=== PATIENT | female | born 1995 | race Hispanic/Latino ===

== ENCOUNTER 2018-07-01 13:52 | Emergency (ER) | payer BC ==
[2018-07-01 14:34] VITALS: O2SAT 100
[2018-07-01] MEDS ORDERED: Sodium Chloride 0.9% 1,000 ML IV STA (15:03)
[2018-07-01] MEDS ORDERED: Iohexol 240 (50 ml) PO ONE (15:03)
[2018-07-01] MEDS ORDERED: Iohexol 240 (50 ml) ONE (15:10)
--- NOTE | 2018-07-01 15:21 | ED PDOC ---
HPI: Abdomen Time Seen by Provider: 07/01/18 14:48 Chief Complaint (Nursing): Abdominal Pain Chief Complaint (Provider): Abdominal Pain History Per: Patient History/Exam Limitations: no limitations Onset/Duration Of Symptoms: Days (x 1) Current Symptoms Are (Timing): Still Present Location Of Pain/Discomfort: Diffuse, RLQ Quality Of Discomfort: "Pain" Associated Symptoms: Nausea, Vomiting Additional Complaint(s): 23 year old female presents to the ED with right sided abdominal pain associated with nausea and vomiting beginning today. Patient reports that she visited [facility] Urgent care and was sent to the ED citing the possibility of appendicitis. She vomited twice prior to arrival. Patient takes no medications other than adderall and control. Denies urinary symptoms, diarrhea, vaginal bleeding and pelvic pain. PMD: Dr. Edwards Abnormal Vaginal Bleeding: No Past Medical History Reviewed: Historical Data, Nursing Documentation, Vital Signs Vital Signs: Last Vital Signs Temp 97.0 F L 07/01/18 14:30 Pulse 76 07/01/18 14:30 Resp 18 07/01/18 14:30 BP 108/72 07/01/18 14:30 Pulse Ox 100 07/01/18 14:30 - Medical History PMH: No Chronic Diseases - Surgical History Other surgeries: AVM removal in 2013 - Family History Family History: States: Unknown Family Hx - Allergies Allergies/Adverse Reactions: Allergies Allergy/AdvReac Type Severity Reaction Status Date / Time neomycin Allergy URTICARIA Verified 07/01/18 14:30 Review of Systems ROS Statement: Except As Marked, All Systems Reviewed And Found Negative ENT: Positive for: Nose Congestion Respiratory: Positive for: Sputum Gastrointestinal: Positive for: Nausea, Vomiting, Abdominal Pain. Negative for: Diarrhea Genitourinary Female: Negative for: Dysuria, Frequency, Incontinence, Vaginal Bleeding, Pelvic Pain Physical Exam - Reviewed Nursing Documentation Reviewed: Yes Vital Signs Reviewed: Yes - Physical Exam Appears: Positive for: No Acute Distress Head Exam: Positive for: ATRAUMATIC, NORMAL INSPECTION, NORMOCEPHALIC Skin: Positive for: Normal Color, Warm, Dry Eye Exam: Positive for: EOMI, Normal appearance, PERRL Neck: Positive for: Normal, Painless ROM, Supple Cardiovascular/Chest: Positive for: Regular Rate, Rhythm. Negative for: Murmur Respiratory: Positive for: Normal Breath Sounds. Negative for: Respiratory Distress Gastrointestinal/Abdominal: Positive for: Tenderness (diffuse). Negative for: Guarding, Rebound Extremity: Positive for: Normal ROM (upper and lower extremities). Negative fo r: Deformity Neurologic/Psych: Positive for: Alert, Oriented (x 3). Negative for: Motor/Sensory Deficits - Laboratory Results Result Diagrams: 07/01/18 15:18 07/01/18 15:18 - ECG O2 Sat by Pulse Oximetry: 100 (RA) Pulse Ox Interpretation: Normal - Progress ED Course And Treament: 1900: Stable. Dr. Kelly to fu on US. Appendix ok on Ct. Medical Decision Making Medical Decision Makin:03 Impression: abdominal pain, nausea and vomiting Initial Plan: --Abd Pelvis CT --CMP --urine dip --Lipase --CBC --NS IV --Omnipaque 50 ml PO --Zofran Inj 4 mg IV --UA Scribe Attestation: Documented by Sierra Medley, acting as a scribe for Clemente Wagner MD Provider Scribe Attestation: All medical record entries made by the Scribe were at my direction and personally dictated by me. I have reviewed the chart and agree that the record accurately reflects my personal performance of the history, physical exam, medical decision making, and the department course for this patient. I have also personally directed, reviewed, and agree with the discharge instructions and disposition. Disposition - Clinical Impression Clinical Impression: Abdominal pain, Haemorrhagic cyst - Patient ED Disposition Is Patient to be Admitted: No - Disposition Disposition: Transfer of Care Disposition Time: 19:05 Condition: STABLE Forms: [employer] ([place]an) Patient Signed Over To: Johnson Kelly
[2018-07-01 15:30] LABS: BASO # 0.1 K/uL (0.0-0.2); BASO % 0.9 % (0.0-2.0); EOS % 0.7 % (0.0-4.0); LYMPH # 1.7 K/uL (1.0-4.3); LYMPH % 28.4 % (20.0-40.0); MEAN CELL VOLUME 93.6 fl (81.0-99.0); MEAN CORPUSCULAR HEMOGLOBIN 31.3 pg (27.0-31.0); MEAN CORPUSCULAR HGB CONC 33.5 g/dL (33.0-37.0); MEAN PLATELET VOLUME 7.4 fl (7.2-11.7); MONO # 0.5 K/uL (0.0-0.8); MONO % 8.3 % (0.0-10.0); NEUT # 3.7 K/uL (1.8-7.0); NEUT % 61.7 % (50.0-75.0); NRBC % 0.2 % (0.0-0.0); RBC 4.15 Mil/uL (3.80-5.20); RED CELL DISTRIBUTION WIDTH 13.1 % (11.5-14.5)
[2018-07-01 16:03] LABS: SQUAMOUS EPITHIAL 8 /hpf (0-5); URINE BILIRUBIN NEGATIVE (NEGATIVE); URINE BLOOD NEGATIVE (NEGATIVE); URINE CLARITY SLIGHTY-CLOUDY (Clear); URINE COLOR YELLOW (YELLOW); URINE GLUCOSE (UA) NEG (NEGATIVE); URINE LEUKOCYTE ESTERASE SMALL Leu/uL (Negative); URINE PROTEIN NEGATIVE (NEGATIVE); URINE UROBILINOGEN 0.2-1.0 mg/dL (0.2-1.0)
[2018-07-01 16:04] LABS: ALB/GLOB RATIO 1.5 (1.0-2.1); ALBUMIN 4.3 g/dL (3.5-5.0); ALT/SGPT 32 U/L (9-52); AST/SGOT 35 U/L (14-36); BLOOD UREA NITROGEN 19 mg/dl (7-17); CALCIUM 9.1 mg/dL (8.4-10.2); GFR NON-AFRICAN AMERICAN > 60; LIPASE 91 U/L (23-300)
[2018-07-01] MEDS ORDERED: Sodium Chloride 0.9% 50 ML IV ONE (17:56)
[2018-07-01] MEDS ORDERED: Iohexol 300 100 ML IJ ONE (17:56)
--- NOTE | 2018-07-01 18:48 | CT ---
Date of service: 07/01/2018 PROCEDURE: CT Abdomen and Pelvis with contrast HISTORY: abd pain COMPARISON: None available. TECHNIQUE: CT scan of the abdomen and pelvis was performed after administration of intravenous contrast. Oral contrast was administered. Coronal and sagittal reformatted images were obtained. Contrast dose: 90 mL Omnipaque 300 Radiation dose: Total exam DLP = 473.23 mGy-cm. This CT exam was performed using one or more of the following dose reduction techniques: Automated exposure control, adjustment of the mA and/or kV according to patient size, and/or use of iterative reconstruction technique. FINDINGS: LOWER THORAX: The visualized lungs are clear. LIVER: Fatty liver with homogeneous enhancement. No gross lesion or ductal dilatation. GALLBLADDER AND BILE DUCTS: The gallbladder is contracted. PANCREAS: Normal in size with homogeneous enhancement. No gross lesion or ductal dilatation. SPLEEN: Normal in size and appearance. ADRENALS: No discrete nodule. KIDNEYS AND URETERS: Normal in size with homogeneous enhancement. No hydronephrosis. No solid mass. VASCULATURE: No aortic aneurysm. BOWEL: The small bowel loops are normal in caliber. There is moderate amount of stool in the ascending and transverse colon. No bowel wall thickening or obstruction. APPENDIX: Normal appendix. PERITONEUM: No free fluid. No free air. LYMPH NODES: No enlarged lymph nodes. BLADDER: Well distended and normal in appearance. REPRODUCTIVE: The uterus is normal in size. There fluid in the endometrial canal. There is a 3.8 x 2.8 cm high attenuation cyst in the left ovary BONES: No acute fracture. Within normal limits for the patient's age. OTHER FINDINGS: None. IMPRESSION: No CT evidence for acute appendicitis. 3.8 x 2.8 cm complicated/hemorrhagic cyst in the left ovary. If clinically indicated, correlation with pelvic ultrasound may be performed to exclude torsion.
--- NOTE | 2018-07-01 19:24 | ED PDOC ---
- Laboratory Results Result Diagrams: 07/01/18 15:18 07/01/18 15:18 - ECG O2 Sat by Pulse Oximetry: 100 (RA) Pulse Ox Interpretation: Normal Medical Decision Making Medical Decision Makin --Patient signed out to this provider pending imaging results, reevaluation and disposition. 20:46 US Findings Uterus Measures 6.6 x 3.7 x 5 cm. Normal in size and retroverted. No fibroid or other mass lesion seen. Endometrium Measures 12 mm in diameter. Unremarkable. Right ovary Measures 2.5 x 1.4 x 3.1 cm. No solid mass. Normal flow. Left ovary Measures 4.2 x 2.8 x 4.5 cm. No solid mass. Normal flow. Cyst measures 3.3 x 2.1 x 3.7 cm. Free fluid Fluid is seen in the cul-de-sac. Other Findings None. Impression 1. Fluid is seen in the cul-de-sac. 2. Left ovarian cyst. 2100 --Patient requires no further treatment in the ED. She is stable for discharge. Diagnosis is ovarian cyst. -------- --------- Scribe Attestation: Documented by Sierra Medley acting as a scribe for Johnson Kelly MD Provider Scribe Attestation: All medical record entries made by the Scribe were at my direction and personally dictated by me. I have reviewed the chart and agree that the record accurately reflects my personal performance of the history, physical exam, medical decision making, and the department course for this patient. I have also personally directed, reviewed, and agree with the discharge instructions and disposition. Disposition - Clinical Impression Clinical Impression: Abdominal pain, Haemorrhagic cyst - POA Present On Arrival: None - Disposition Disposition: Routine/Home Disposition Time: 21:01 Condition: STABLE Prescriptions: Naproxen [Naprosyn] 500 mg PO Q12 #14 tab Instructions: Ovarian Cysts Forms: [employer] (Italian)
[2018-07-01 21:07] VITALS: BP 110/72; PULSE 78; RESP 16; TEMP 97.9
--- NOTE | 2018-07-02 12:37 | US ---
Date of service: 07/01/2018 HISTORY: vaginal bleeding COMPARISON: None available. TECHNIQUE: Transvaginal only FINDINGS: UTERUS: Measures 6.6 x 3.7 x 5.0 cm. Retroverted. No fibroid or other mass lesion seen. ENDOMETRIUM: Measures 12 mm in diameter. Unremarkable. CERVIX: No cervical abnormality identified. RIGHT OVARY: Measures 2.5 x 1.4 x 3.1 cm. No solid mass. Normal flow. LEFT OVARY: Measures 4.2 x 2.8 x 4.5 cm. No solid mass. Normal flow. Minimally complicated cyst, 2.1 x 3.3 x 3.7 cm with low-level internal echoes, likely post hemorrhagic debris. Recommend follow-up transvaginal pelvic ultrasound examination in 6-12 weeks. FREE FLUID: Minimal fluid in cul-de-sac OTHER FINDINGS: None. IMPRESSION: 3.7 cm minimally complicated left ovarian cyst with low-level internal echoes. Likely post hemorrhagic debris. Recommend follow-up transvaginal ultrasound examination in 6-12 weeks. Nonspecific minimal fluid in cul-de-sac. Otherwise unremarkable examination. The preliminary findings for this examination were reported by [facility] at 8:53 p.m. on 07/01/2018. There is discordance of this report with the preliminary findings. The complicated nature of the left ovarian cyst was not described in the preliminary report of this examination please note follow-up is recommended with transvaginal ultrasound examination as above.
== END 2018-07-01 21:07 | disposition home or self-care (01) ==
LOC: H.ER 13:52
DX: N83.202 Unspecified ovarian cyst, left side (principal)
CPT/HCPCS: 74177; 76830; 80053; 81003; 81025; 83690; 85025; 96374; 99284; J2405; J7030; Q9966; Q9967